=== PATIENT | male | born 1965 | race Caucasian/White ===

== ENCOUNTER 2021-08-10 13:30 | Outpatient (AMB) | payer MEDICAID, SELFPAY ==
--- NOTE | 2021-08-11 14:07 | CWCCLINC_ITS ---
OP Care Transition Does patient have PCP: Yes PCP Follow up: No (Schedule for 08/15/2021 at [facility]. ) Visit Summary: Pt was provided Pt with a follow-up call from the [facility], post- acute care transitions program. Pt shared that his breathing has improved with the home oxygen that was delivered to his home. Pt communicated that he requires a full oxygen mask. Pt is waiting for his medication prescription to be filled. Pt revealed that he has a pending PCP appointment scheduled for Sunday August 15, 2021. Pt was provided with CC?s contact information via text message. CC will continue to provide support and assistance as needed. [facility] Care System Administration Advisor Initial Visit Does patient have PCP: Yes Visit Summary: Pt was provided Pt with a follow-up call from the [facility], post- acute care transitions program. Pt shared that his breathing has improved with the home oxygen that was delivered to his home. Pt communicated that he requires a full oxygen mask. Pt is waiting for his medication prescription to be filled. Pt revealed that he has a pending PCP appointment scheduled for Sunday August 15, 2021. Pt was provided with CC?s contact information via text message. CC will continue to provide support and assistance as needed. *[facility] Office Visit complete [facility] Offive Visit Complete [facility] Visit Complete?: Yes CHF Chest X-Ray 08/14/21
== END 2021-08-10 14:00 | disposition home or self-care (01) ==
LOC: HODCWC 08-14 12:54
PROVIDERS: PCP Radiology Therapeutic Radiology; Referring Provider Radiology Therapeutic Radiology